=== PATIENT | female | born 1975 | race African-American/Black ===

== ENCOUNTER 2017-05-10 19:34 | Emergency (ER) | payer MEDICAID, OTHER ==
[~2017-05-10] VITALS: Ht 170.2 cm; Wt 178.0 kg
[~2017-05-10 19:34] MED LIST: DICY1TAB26 PO; ENAL5TAB PO; EXEN1INJ SQ; FURO1TAB93 PO; HUMALOGP SQ; LANTUS2P SC; LORTA5 PO; METO10TA PO; METO25 PO; PROT40TA PO; ZOFR4TAB3 SL
[2017-05-10 19:36] VITALS: BP 191/94; PULSE 97; RESP 16; TEMP 98.7; O2SAT 96
--- NOTE | 2017-05-10 20:27 | PD ---
HPI Chief Complaint: Medication Refill Request Time Seen by Provider: 20:25 Travel History International Travel<30 days: No Contact w/Intl Traveler<30days: No Traveled to known affect area: No History of Present Illness HPI Patient is a 41-year-old female with a history of high blood pressure chronic kidney disease presents emergency department for refill of her Lasix. Patient states she's noticed some minor swelling over her eyes. Patient states she's been out of her Lasix for the past week. She has an appointment with her primary care physician later this week but given the swelling she wanted to come in and get a refill sooner. She states been at least 2 months to last blood work. She denies any chest pain shortness breath abdominal pain nausea vomiting diarrhea headaches blurred vision or focalized weakness. PFSH Past Medical History Blood Disorders: No Anxiety: No Depression: No Cancer: No Cardiovascular Problems: No High Cholesterol: Yes Chemotherapy: No Diabetes: Yes Diminished Hearing: No Endocrine: Yes Gestational Age in Weeks: 28 Genitourinary: Yes Hepatitis: No Hiatal Hernia: No Hypertension: Yes Immune Disorder: No Musculoskeletal: No Neurologic: No Psychiatric: No Reproductive: No Respiratory: No Immunizations Current: No Radiation Therapy: No Thyroid Disease: No : 4 Para: 2 Miscarriage: 2 Past Surgical History Abdominal Surgery: No Cardiac Surgery: No Section: Yes (X2) Ear Surgery: No Endocrine Surgery: No Eye Surgery: No Genitourinary Surgery: No Gynecologic Surgery: Yes ( x 2) Insulin Pump: No Oral Surgery: No Pacemaker: No Thoracic Surgery: No Other Surgery: Yes Social History Alcohol Use: No Tobacco Use: No Substance Use: No Allergies-Medications (Allergen,Severity, Reaction): Coded Allergies: No Known Allergies (Verified , 05/10/17) Reported Meds & Prescriptions Reported Meds & Active Scripts Active Lasix (Furosemide) 40 Mg Tab 40 Mg PO BID Reported Enalapril (Enalapril Maleate) 20 Mg Tab 20 Mg PO BID Bydureon Inj (Exenatide) 2 Mg Vial 2 Mg SQ THURSDAY Lantus Inj (Insulin Glargine) 1,000 Unit/10 Ml Vial 20 Units SQ HS Humalog Inj (Insulin Human Lispro) 1,000 Unit/10 Ml Vial Unknown Dose SQ ACHS Max dose at bedtime:( )units; sugars < 70,(0)units; sugars 150-199,(5)units; sugars 200-249,(10)units; sugars 250-299,(15)units; sugars 300-349,(20)units; sugars more than 349,(25)units. Toprol XL (Metoprolol Succinate) 50 Mg Tab 50 Mg PO BID Omeprazole 20 Mg Tab 20 Mg PO BID Review of Systems Except as stated in HPI: all other systems reviewed are Neg Physical Exam Narrative GENERAL: Well-nourished, well-developed patient. SKIN: Focused skin assessment warm/dry. HEAD: Normocephalic. EYES: No scleral icterus. No injection or drainage. NECK: Supple, trachea midline. No JVD or lymphadenopathy. CARDIOVASCULAR: Regular rate and rhythm without murmurs, gallops, or rubs. RESPIRATORY: Breath sounds equal bilaterally. No accessory muscle use. GASTROINTESTINAL: Abdomen soft, non-tender, nondistended. MUSCULOSKELETAL: No cyanosis, or edema. BACK: Nontender without obvious deformity. No CVA tenderness. Data Data Last Documented VS Vital Signs Date Time Temp Pulse Resp B/P Pulse Ox O2 Delivery O2 Flow Rate FiO2 05/10/17 22:14 88 21 172/89 100 05/10/17 19:36 98.7 Room Air Orders Basic Metabolic Panel (Bmp) (05/10/17 20:01) Labs Laboratory Tests Test 05/10/17 20:55 Sodium Level 139 MEQ/L Potassium Level 3.9 MEQ/L Chloride Level 109 MEQ/L Carbon Dioxide Level 20.0 MEQ/L Anion Gap 10 MEQ/L Blood Urea Nitrogen 20 MG/DL Creatinine 2.16 MG/DL Estimat Glomerular Filtration 30 ML/MIN Rate Random Glucose 198 MG/DL Calcium Level 8.4 MG/DL [facility] Medical Decision Making Medical Screen Exam Complete: Yes Emergency Medical Condition: Yes Differential Diagnosis Medication refill, hypertension, edema, chronic kidney disease. Narrative Course Patient roomed emergency department, has no complaints toward emergent workup, she is requesting a refill for Lasix, would like to check her potassium before refill it. The potassium within normal limits, the patient's creatinine is 200 previous for comparison is one was in 2015, she was variable after that. Discussed that she needs to follow us up the primary care physician she has an appointment later this week. I think the labs likely represent a chronic kidney disease describes. She says she is CKD4. Her blood pressure is mildly elevated but there is no sign symptoms of end organ damage and no indication for acute reduction. She stable for discharge at this time. Diagnosis Primary Impression: ESSENTIAL (PRIMARY) HYPERTENSION Additional Impression: CKD (chronic kidney disease) Med/Other Pt SpecificInfo: Prescription(s) given Scripts Furosemide (Lasix)40 Mg Tab40 Mg PO BID #60 TAB Ref 0 Prov:Cristian Allen MD 05/10/17 Disposition: 01 DISCHARGE HOME Condition: Stable Cristian Allen MD May 10, 2017 20:27
[2017-05-10 21:48] LABS: POTASSIUM 3.9 MEQ/L (3.5-5.1)
[2017-05-10] MEDS ORDERED: FURO1TAB60 PO (21:55)
[2017-05-10] MEDS ORDERED: HUMALOG SQ (22:05)
[2017-05-10] MEDS ORDERED: EXENINJ SQ (22:05)
[2017-05-10] MEDS ORDERED: OMEP20TA PO (22:05)
[2017-05-10] MEDS ORDERED: LANTUS2P SQ (22:05)
[2017-05-10] MEDS ORDERED: ENAL20TA PO (22:05)
[2017-05-10] MEDS ORDERED: TOPR50TA PO (22:05)
[2017-05-10 22:14] VITALS: BP 172/89
== END 2017-05-10 22:17 | disposition home or self-care (01) ==
LOC: NEPD 19:34
DX: Z76.0 Encounter for issue of repeat prescription (principal); I12.9 Hypertensive chronic kidney disease with stage 1 through stage 4 chronic kidney disease, or unspecified chronic kidney disease; E11.22 Type 2 diabetes mellitus with diabetic chronic kidney disease; N18.9 Chronic kidney disease, unspecified; E78.00 Pure hypercholesterolemia, unspecified; Z79.4 Long term (current) use of insulin; Z79.899 Other long term (current) drug therapy
CPT/HCPCS: 80048; 99283